=== PATIENT | male | born 1965 | race Caucasian/White ===

== ENCOUNTER 2016-07-19 10:28 | Inpatient (IN) | payer MEDICAID ==
[~2016-07-19] VITALS: Ht 182.9 cm; Wt 103.4 kg
[2016-07-19 10:34] VITALS: BP 157/88
[2016-07-19] MEDS ORDERED: PIPERACILLIN/TAZOBACTAM 3.375 GM in DEXTROSE 5% 50 ML IV ONE (10:55)
[2016-07-19] MEDS ORDERED: VANCOMYCIN 1,000 MG in DEXTROSE 5% 250 ML IV ONE (10:55)
[2016-07-19] MEDS ORDERED: PIPERACILLIN/TAZOBACTAM 3.375 GM VIAL IV ONE (11:09)
[2016-07-19 11:19] LABS: BASOPHILS # (AUTO) 0.1 K/uL (0.00-0.22); BASOPHILS % (AUTO) 2.1 % (0.0-2.0); EOSINOPHILS # (AUTO) 0.1 K/uL (0-0.4); EOSINOPHILS % (AUTO) 2.9 % (0.0-4.0); LYMPHOCYTES # (AUTO) 0.8 K/uL (2.0-11.5); MONOCYTES # (AUTO) 0.4 K/uL (0.8-1.0)
[2016-07-19] MEDS ORDERED: NACL 0.9% 1,000 ML IV ONE (11:25)
[2016-07-19 11:29] LABS: ANION GAP 10.1 (8-16); CALCIUM 8.3 mg/dL (8.5-10.1); CARBON DIOXIDE 26.5 mmol/L (21-32); CREATININE 1.1 mg/dL (0.6-1.3); HEMATOCRIT 32.5 % (36-52); HEMOGLOBIN 11.2 g/dL (12.0-18.0); MEAN CORPUSCULAR HEMOGLOBIN 34 pg (27-31); MEAN CORPUSCULAR HGB CONC 34 g/dL (33-37); MEAN CORPUSCULAR VOLUME 97 fL (80-94); MONOCYTES % (AUTO) 9.4 % (1.7-9.3); NEUTROPHILS # (AUTO) 2.9 K/uL (1.8-7.7); NEUTROPHILS % (AUTO) 67.6 % (42.2-75.2); PLATELET COUNT (AUTO) 64 K/uL (140-450); POTASSIUM 4.6 mmol/L (3.5-5.1); RED BLOOD CELL COUNT(AUTO) 3.34 MIL/uL (4.20-6.10); RED CELL DISTRIBUTION WIDTH 13.4 % (11.6-13.7); WHITE BLOOD COUNT (AUTO) 4.3 K/uL (4.8-10.8)
[2016-07-19 11:35] LABS: ALBUMIN 2.5 g/dL (3.4-5.0); TOTAL BILIRUBIN 2.6 mg/dL (0.0-1.0); TOTAL PROTEIN, SERUM 8.3 g/dL (6.4-8.2)
[2016-07-19] MEDS ORDERED: VANCOMYCIN 1,000 MG VIAL ONE (12:14)
[2016-07-19 13:30] VITALS: BP 137/82
[2016-07-19 16:00] VITALS: BP 143/84
[2016-07-19] MEDS ORDERED: HYDROcodone/APAP 5/325 MG 1 TAB TAB PO PRN (16:00)
[2016-07-19] MEDS ORDERED: ONDANSETRON 4 MG/2 ML VIAL IVP PRN (16:00)
[2016-07-19] MEDS ORDERED: ACETAMINOPHEN 325 MG TAB PO PRN (16:00)
[2016-07-19] MEDS ORDERED: LORazepam 2 MG/ML VIAL IVP PRN (16:00)
[2016-07-19] MEDS ORDERED: METF1000 PO (16:40)
[2016-07-19] MEDS ORDERED: ORE25 PO (16:40)
[2016-07-19] MEDS ORDERED: [UNRECOGNIZED DRUG - CODE] PO (16:40)
[2016-07-19] MEDS ORDERED: LISI-420 PO (16:40)
[2016-07-19 20:00] VITALS: BP 133/73
[2016-07-19] MEDS: PIPER/TAZO 3.375GM/D5W PREMIX 50 ML IV SCH (20:38)
[2016-07-19] MEDS ORDERED: PIPERACILLIN/TAZOBACTAM 3.375 GM in DEXTROSE 5% 50 ML IV SCH (21:00)
[2016-07-19] MEDS: guaiFENesin DM 200/20 MG-10 ML 10 ML UDC PO PRN (22:35)
[2016-07-20] VITALS: BP 125/69
[2016-07-20] MEDS: PIPER/TAZO 3.375GM/D5W PREMIX 50 ML IV SCH ×3 (05:02→20:17)
[2016-07-20 05:56] LABS: EOSINOPHILS # (AUTO) 0.3 K/uL (0-0.4); EOSINOPHILS % (AUTO) 5.7 % (0.0-4.0); HEMOGLOBIN 10.5 g/dL (12.0-18.0); LYMPHOCYTES # (AUTO) 1.2 K/uL (2.0-11.5); LYMPHOCYTES % (AUTO) 27.3 % (20.5-51.1); MEAN CORPUSCULAR HEMOGLOBIN 34 pg (27-31); MEAN CORPUSCULAR HGB CONC 34 g/dL (33-37); MEAN CORPUSCULAR VOLUME 100 fL (80-94); MONOCYTES # (AUTO) 0.4 K/uL (0.8-1.0); MONOCYTES % (AUTO) 10.1 % (1.7-9.3); NEUTROPHILS # (AUTO) 2.5 K/uL (1.8-7.7); NEUTROPHILS % (AUTO) 55.9 % (42.2-75.2); PLATELET COUNT (AUTO) 53 K/uL (140-450); RED BLOOD CELL COUNT(AUTO) 3.11 MIL/uL (4.20-6.10); RED CELL DISTRIBUTION WIDTH 13.7 % (11.6-13.7); WHITE BLOOD COUNT (AUTO) 4.4 K/uL (4.8-10.8)
[2016-07-20] MEDS: BLOOD GLUCOSE MONITORING 1 DEV DEV FS SCH ×4 (06:36→20:17)
[2016-07-20] MEDS: INSULIN LISPRO SLIDING SCALE 100 UNITS/ML VIAL SUBQ PRN ×4 (06:38→20:18)
[2016-07-20 06:42] LABS: ANION GAP 9.8 (8-16); CALCIUM 8.3 mg/dL (8.5-10.1); CARBON DIOXIDE 28.5 mmol/L (21-32); POTASSIUM 4.3 mmol/L (3.5-5.1)
[2016-07-20 08:00] VITALS: BP 135/75
[2016-07-20] MEDS: metFORMIN 500 MG TAB PO SCH ×2 (08:35→17:25)
[2016-07-20 16:00] VITALS: BP 132/82
[2016-07-20] MEDS ORDERED: VANCOMYCIN PER PHARMACY MC PRN (17:10)
[2016-07-20] MEDS: VANCOMYCIN 1,250 MG in NACL 0.9% 250 ML IV SCH (18:04)
[2016-07-20] MEDS ORDERED: metFORMIN 500 MG TAB PO SCH (21:00)
[2016-07-21] VITALS: BP 131/78
[2016-07-21] MEDS: PIPER/TAZO 3.375GM/D5W PREMIX 50 ML IV SCH ×3 (04:40→21:47)
[2016-07-21] MEDS: VANCOMYCIN 1,250 MG in NACL 0.9% 250 ML IV SCH ×2 (05:35→17:01)
[2016-07-21] MEDS: BLOOD GLUCOSE MONITORING 1 DEV DEV FS SCH ×4 (06:24→21:47)
[2016-07-21] MEDS: INSULIN LISPRO SLIDING SCALE 100 UNITS/ML VIAL SUBQ PRN ×3 (06:25→17:06)
[2016-07-21 07:10] LABS: BASOPHILS # (AUTO) 0.1 K/uL (0.00-0.22); EOSINOPHILS # (AUTO) 0.3 K/uL (0-0.4); EOSINOPHILS % (AUTO) 8.9 % (0.0-4.0); HEMATOCRIT 30.1 % (36-52); HEMOGLOBIN 10.2 g/dL (12.0-18.0); LYMPHOCYTES # (AUTO) 1.1 K/uL (2.0-11.5); LYMPHOCYTES % (AUTO) 29.7 % (20.5-51.1); MEAN CORPUSCULAR HEMOGLOBIN 34 pg (27-31); MEAN CORPUSCULAR HGB CONC 34 g/dL (33-37); MEAN CORPUSCULAR VOLUME 99 fL (80-94); MONOCYTES # (AUTO) 0.5 K/uL (0.8-1.0); NEUTROPHILS # (AUTO) 1.5 K/uL (1.8-7.7); NEUTROPHILS % (AUTO) 46.4 % (42.2-75.2); PLATELET COUNT (AUTO) 54 K/uL (140-450); RED BLOOD CELL COUNT(AUTO) 3.03 MIL/uL (4.20-6.10); RED CELL DISTRIBUTION WIDTH 13.5 % (11.6-13.7); WHITE BLOOD COUNT (AUTO) 3.6 K/uL (4.8-10.8)
[2016-07-21 07:44] LABS: ANION GAP 7.7 (8-16); CARBON DIOXIDE 27.2 mmol/L (21-32); CREATININE 1.1 mg/dL (0.6-1.3); POTASSIUM 3.9 mmol/L (3.5-5.1)
[2016-07-21 08:00] VITALS: BP 117/77
[2016-07-21] MEDS: metFORMIN 500 MG TAB PO SCH ×2 (08:37→17:00)
[2016-07-21] MEDS: LISINOPRIL 20 MG TAB PO SCH (09:00)
[2016-07-21] MEDS: HYDROCHLOROTHIAZIDE 25 MG TAB PO SCH (09:00)
[2016-07-21] MEDS: guaiFENesin DM 200/20 MG-10 ML 10 ML UDC PO PRN (15:10)
[2016-07-21 16:00] VITALS: BP 142/80
[2016-07-22] VITALS: BP 140/84
[2016-07-22] MEDS: PIPER/TAZO 3.375GM/D5W PREMIX 50 ML IV SCH ×3 (04:25→21:32)
[2016-07-22] MEDS: BLOOD GLUCOSE MONITORING 1 DEV DEV FS SCH ×4 (06:13→21:34)
[2016-07-22 07:16] LABS: ANION GAP 13.1 (8-16); CALCIUM 8.1 mg/dL (8.5-10.1); CARBON DIOXIDE 23.6 mmol/L (21-32); POTASSIUM 3.7 mmol/L (3.5-5.1)
[2016-07-22 07:17] LABS: CREATININE 1.1 mg/dL (0.6-1.3)
[2016-07-22 07:44] VITALS: BP 116/73
[2016-07-22] MEDS: metFORMIN 500 MG TAB PO SCH ×2 (08:00→16:57)
[2016-07-22] MEDS: LISINOPRIL 20 MG TAB PO SCH (09:00)
[2016-07-22] MEDS: HYDROCHLOROTHIAZIDE 25 MG TAB PO SCH (09:00)
[2016-07-22] MEDS ORDERED: NEOMYCIN/POLYMYXIN/BACITRACIN 0.9 GM/1 PKT TP PRN (10:50)
[2016-07-22] MEDS: INSULIN LISPRO SLIDING SCALE 100 UNITS/ML VIAL SUBQ PRN ×3 (12:28→21:35)
[2016-07-22] MEDS: NEOMYCIN/POLYMYXIN/BACITRACIN 0.9 GM/1 PKT TP SCH (12:29)
[2016-07-22 15:55] VITALS: BP 131/77
[2016-07-23] VITALS: BP 141/83
[2016-07-23] MEDS: PIPER/TAZO 3.375GM/D5W PREMIX 50 ML IV SCH ×3 (04:00→21:27)
[2016-07-23 05:44] LABS: HEMATOCRIT 31.7 % (36-52); HEMOGLOBIN 10.8 g/dL (12.0-18.0); MEAN CORPUSCULAR HEMOGLOBIN 34 pg (27-31); MEAN CORPUSCULAR HGB CONC 34 g/dL (33-37); MEAN CORPUSCULAR VOLUME 100 fL (80-94); PLATELET COUNT (AUTO) 59 K/uL (140-450); RED BLOOD CELL COUNT(AUTO) 3.19 MIL/uL (4.20-6.10); RED CELL DISTRIBUTION WIDTH 14.1 % (11.6-13.7); WHITE BLOOD COUNT (AUTO) 4.3 K/uL (4.8-10.8)
[2016-07-23] MEDS: INSULIN LISPRO SLIDING SCALE 100 UNITS/ML VIAL SUBQ PRN ×4 (06:20→21:33)
[2016-07-23] MEDS: BLOOD GLUCOSE MONITORING 1 DEV DEV FS SCH ×4 (06:26→21:31)
[2016-07-23 06:49] LABS: ANION GAP 11.8 (8-16); CALCIUM 8.3 mg/dL (8.5-10.1); CREATININE 1.2 mg/dL (0.6-1.3); POTASSIUM 3.8 mmol/L (3.5-5.1)
[2016-07-23 07:02] LABS: BAND % (MANUAL) 4 % (0-8); EOSINOPHILS % (MANUAL) 7 % (0-4); LYMPHOCYTES % (MANUAL) 39 % (20-46); MONOCYTES % (MANUAL) 10 % (5-12); NEUTROPHILS % (MANUAL) 40 (43-65); PLATELET ESTIMATE DECREASED
[2016-07-23 08:00] VITALS: BP 125/85
[2016-07-23] MEDS: metFORMIN 500 MG TAB PO SCH (08:00)
[2016-07-23] MEDS: HYDROCHLOROTHIAZIDE 25 MG TAB PO SCH (08:45)
[2016-07-23] MEDS: LISINOPRIL 20 MG TAB PO SCH (08:45)
[2016-07-23] MEDS ORDERED: MAGNESIUM CITRATE 300 ML BTL PO SCH (12:00)
[2016-07-23] MEDS: SENNA 8.6 MG TAB PO SCH ×3 (13:45→21:29)
[2016-07-23] MEDS: LACTULOSE 20 GM/30 ML UDC PO SCH ×2 (13:45→16:36)
[2016-07-23] MEDS: NEOMYCIN/POLYMYXIN/BACITRACIN 0.9 GM/1 PKT TP SCH (13:47)
[2016-07-23 16:00] VITALS: BP 121/55
[2016-07-23 20:00] VITALS: BP 127/78
[2016-07-24] MEDS: PIPER/TAZO 3.375GM/D5W PREMIX 50 ML IV SCH (05:06)
[2016-07-24] MEDS ORDERED: BOWEL EVACUANT DRINK 4,000 ML PDS PO SCH (06:00)
[2016-07-24 06:01] LABS: BASOPHILS # (AUTO) 0.2 K/uL (0.00-0.22); BASOPHILS % (AUTO) 4.2 % (0.0-2.0); EOSINOPHILS # (AUTO) 0.3 K/uL (0-0.4); EOSINOPHILS % (AUTO) 8.1 % (0.0-4.0); HEMATOCRIT 32.5 % (36-52); LYMPHOCYTES # (AUTO) 1.5 K/uL (2.0-11.5); MEAN CORPUSCULAR HEMOGLOBIN 34 pg (27-31); MEAN CORPUSCULAR HGB CONC 34 g/dL (33-37); MEAN CORPUSCULAR VOLUME 100 fL (80-94); MONOCYTES # (AUTO) 0.6 K/uL (0.8-1.0); MONOCYTES % (AUTO) 14.3 % (1.7-9.3); NEUTROPHILS # (AUTO) 1.6 K/uL (1.8-7.7); NEUTROPHILS % (AUTO) 37.4 % (42.2-75.2); RED BLOOD CELL COUNT(AUTO) 3.24 MIL/uL (4.20-6.10); RED CELL DISTRIBUTION WIDTH 13.7 % (11.6-13.7); WHITE BLOOD COUNT (AUTO) 4.2 K/uL (4.8-10.8)
[2016-07-24] MEDS: BLOOD GLUCOSE MONITORING 1 DEV DEV FS SCH ×2 (06:11→11:52)
[2016-07-24 06:25] LABS: HEPATITIS B SURFACE ANTIGEN Negative (Negative); HEPATITIS C VIRUS ANTIBODY 0.1 s/co ratio (0.0-0.9)
[2016-07-24 06:29] LABS: ANION GAP 12.6 (8-16); CALCIUM 8.5 mg/dL (8.5-10.1); CARBON DIOXIDE 24.8 mmol/L (21-32); CREATININE 1.2 mg/dL (0.6-1.3); POTASSIUM 3.4 mmol/L (3.5-5.1)
[2016-07-24 07:09] LABS: PLATELET COUNT (AUTO) 67 K/uL (140-450)
[2016-07-24 08:00] VITALS: BP 105/68
[2016-07-24] MEDS: LISINOPRIL 20 MG TAB PO SCH (09:00)
[2016-07-24] MEDS: HYDROCHLOROTHIAZIDE 25 MG TAB PO SCH (09:00)
[2016-07-24] MEDS: LACTULOSE 20 GM/30 ML UDC PO SCH (09:00)
[2016-07-24] MEDS: SENNA 8.6 MG TAB PO SCH (09:00)
[2016-07-24 10:53] LABS: INR 1.5 (0.8-1.2); PARTIAL THROMBOPLASTIN TIME 29.7 secs (22-35.6); PROTHROMBIN TIME 14.5 secs (10.8-13.4)
[2016-07-24] MEDS ORDERED: CLIN300C2 PO (12:48)
[2016-07-24] MEDS ORDERED: diphenhydrAMINE 50 MG/ML VIAL ONE (13:40)
[2016-07-24] MEDS ORDERED: fentaNYL 0.05 MG/ML VIAL ONE (13:40)
[2016-07-24] MEDS ORDERED: MIDAZOLAM 2 MG/2 ML VIAL ONE ×2 (13:40)
[2016-07-24] MEDS: NEOMYCIN/POLYMYXIN/BACITRACIN 0.9 GM/1 PKT TP SCH (14:26)
[2016-07-24] MEDS ORDERED: fentaNYL 0.05 MG/ML VIAL IVP ONE (15:10)
[2016-07-24] MEDS ORDERED: MIDAZOLAM 2 MG/2 ML VIAL IVP ONE (15:10)
[2016-07-25] MEDS ORDERED: LACTULOSE 20 GM/30 ML UDC PO SCH (09:00)
== END 2016-07-24 16:15 | disposition home or self-care (01) | DRG 720 ==
LOC: MED 10:28 → MTU 12:40
PROVIDERS: ADMIT Internal Medicine Cardiovascular Disease; ATTEND Internal Medicine Cardiovascular Disease
PROC: 0HDRXZZ Extraction of Toe Nail, External Approach (ICD-10-PCS; principal; 2016-07-21)
PROC: 0HDRXZZ Extraction of Toe Nail, External Approach (ICD-10-PCS; 2016-07-21)
PROC: 0DB68ZX Excision of Stomach, Via Natural or Artificial Opening Endoscopic, Diagnostic (ICD-10-PCS; 2016-07-24)
PROC: 0DJD8ZZ Inspection of Lower Intestinal Tract, Via Natural or Artificial Opening Endoscopic (ICD-10-PCS; 2016-07-24)
PROC: 0DB98ZX Excision of Duodenum, Via Natural or Artificial Opening Endoscopic, Diagnostic (ICD-10-PCS; 2016-07-24 12:50)
DX: A41.9 Sepsis, unspecified organism (principal); E43 Unspecified severe protein-calorie malnutrition; D61.818 Other pancytopenia; K76.6 Portal hypertension; I85.10 Secondary esophageal varices without bleeding; E87.1 Hypo-osmolality and hyponatremia; E11.21 Type 2 diabetes mellitus with diabetic nephropathy; L03.032 Cellulitis of left toe; E11.40 Type 2 diabetes mellitus with diabetic neuropathy, unspecified; E88.81 Metabolic syndrome and other insulin resistance; E11.621 Type 2 diabetes mellitus with foot ulcer; E11.65 Type 2 diabetes mellitus with hyperglycemia; E83.52 Hypercalcemia; E87.6 Hypokalemia; D64.9 Anemia, unspecified; S90.111A Contusion of right great toe without damage to nail, initial encounter; S91.202A Unspecified open wound of left great toe with damage to nail, initial encounter; S91.201A Unspecified open wound of right great toe with damage to nail, initial encounter; I10 Essential (primary) hypertension; K70.31 Alcoholic cirrhosis of liver with ascites; K76.0 Fatty (change of) liver, not elsewhere classified; R74.0 Nonspecific elevation of levels of transaminase and lactic acid dehydrogenase [LDH]; E88.09 Other disorders of plasma-protein metabolism, not elsewhere classified; K29.00 Acute gastritis without bleeding; K31.89 Other diseases of stomach and duodenum; K31.7 Polyp of stomach and duodenum; K64.8 Other hemorrhoids; L97.509 Non-pressure chronic ulcer of other part of unspecified foot with unspecified severity; Z83.3 Family history of diabetes mellitus; Z68.30 Body mass index [BMI] 30.0-30.9, adult; Z79.899 Other long term (current) drug therapy
CPT/HCPCS: 36415; 71010; 73630; 73660; 73700; 76700; 80048; 80053; 80202; 82948; 83036; 83605; 85025; 85610; 85651; 85730; 86140; 86677; 86803; 87040; 87081; 87340; 88305; 90715; 93005; 96365; 96367; 96372; 99285; J1200; J1815; J2250; J2543; J3010; J3370; J7030; Q0092; Q9967